=== PATIENT | female | born 1945 | race Caucasian/White ===

== ENCOUNTER 2020-09-14 12:03 | Outpatient (RCR) | payer MEDICARE, OTHER, SELFPAY | END 2020-09-19 23:59 | disposition home or self-care (01) | LOC: MR3 12:03 | PROVIDERS: PCP Internal Medicine; Referring Provider Physical Medicine & Rehabilitation; Visit Provider Physical Medicine & Rehabilitation | DX: I69.393 Ataxia following cerebral infarction (principal); I69.319 Unspecified symptoms and signs involving cognitive functions following cerebral infarction | CPT/HCPCS: 97110; 97112; 97161; 97166 ==

== ENCOUNTER 2020-09-20 06:00 | Outpatient (RCR) | payer MEDICARE, OTHER, SELFPAY | END 2020-10-20 23:59 | disposition home or self-care (01) | LOC: MR3 06:00 | PROVIDERS: PCP Internal Medicine; Referring Provider Physical Medicine & Rehabilitation; Visit Provider Physical Medicine & Rehabilitation | DX: I69.919 Unspecified symptoms and signs involving cognitive functions following unspecified cerebrovascular disease (principal); I69.998 Other sequelae following unspecified cerebrovascular disease; R26.89 Other abnormalities of gait and mobility | CPT/HCPCS: 92507; 92523; 97110; 97112 ==

== ENCOUNTER 2020-10-21 06:00 | Outpatient (RCR) | payer MEDICARE, OTHER, SELFPAY | END 2020-11-20 23:59 | disposition home or self-care (01) | LOC: MR3 06:00 | PROVIDERS: PCP Internal Medicine; Referring Provider Physical Medicine & Rehabilitation; Visit Provider Physical Medicine & Rehabilitation | DX: I61.1 Nontraumatic intracerebral hemorrhage in hemisphere, cortical (principal); I67.1 Cerebral aneurysm, nonruptured; R41.89 Other symptoms and signs involving cognitive functions and awareness; R26.89 Other abnormalities of gait and mobility | CPT/HCPCS: 92507 ==

== ENCOUNTER 2020-11-21 06:00 | Outpatient (RCR) | payer MEDICARE, OTHER, SELFPAY | END 2020-12-18 23:59 | disposition home or self-care (01) | LOC: MR3 06:00 | PROVIDERS: PCP Internal Medicine; Referring Provider Physical Medicine & Rehabilitation; Visit Provider Physical Medicine & Rehabilitation | DX: I62.9 Nontraumatic intracranial hemorrhage, unspecified (principal); G31.84 Mild cognitive impairment of uncertain or unknown etiology; I67.1 Cerebral aneurysm, nonruptured | CPT/HCPCS: 92507 ==

== ENCOUNTER 2020-12-19 06:00 | Outpatient (RCR) | payer MEDICARE, OTHER, SELFPAY | END 2021-01-18 23:59 | disposition home or self-care (01) | LOC: MR3 06:00 | PROVIDERS: PCP Internal Medicine; Referring Provider Physical Medicine & Rehabilitation; Visit Provider Physical Medicine & Rehabilitation | DX: I69.398 Other sequelae of cerebral infarction (principal) | CPT/HCPCS: 92507 ==

== ENCOUNTER 2021-01-19 06:00 | Outpatient (RCR) | payer MEDICARE, OTHER, SELFPAY | END 2021-02-17 23:59 | disposition home or self-care (01) | LOC: MR3 06:00 | PROVIDERS: PCP Internal Medicine; Referring Provider Physical Medicine & Rehabilitation; Visit Provider Physical Medicine & Rehabilitation | DX: I62.9 Nontraumatic intracranial hemorrhage, unspecified (principal) | CPT/HCPCS: 92507 ==